=== PATIENT | female | born 2000 | race Caucasian/White ===

== ENCOUNTER 2021-11-07 12:04 | Outpatient (REF) | payer SELFPAY ==
[2021-11-08 14:46] LABS: COVID-19 RT-PCR UVMMC Result Negative (Negative)
== END 2021-11-07 12:05 | disposition home or self-care (01) ==
LOC: NCHCN 12:04
PROVIDERS: PCP Specialist/Technologist Athletic Trainer; Visit Provider Nurse Practitioner Family
DX: Z20.822 Contact with and (suspected) exposure to COVID-19 (principal)
CPT/HCPCS: U0003

== ENCOUNTER 2022-05-16 17:48 | Outpatient (REF) | payer OTHER, SELFPAY | END 2022-05-16 17:49 | disposition home or self-care (01) | LOC: NCHCN 17:48 | PROVIDERS: PCP Specialist/Technologist Athletic Trainer; Visit Provider Nurse Practitioner Family | DX: R35.0 Frequency of micturition (principal) | CPT/HCPCS: 87086 ==

== ENCOUNTER 2022-05-27 15:13 | Outpatient (REF) | payer OTHER, SELFPAY ==
--- OUTSIDE RECORDS SUMMARY | 2022-05-27 15:19 | XMS_ITS | Encounter Summary ---
:2000 Author Organization [facility] [place] [address] Care Team Providers Name Role Phone Michoacano Lenz MD Primary Care Provider Reason for Visit Reason Comments Skin Check Encounter Details Date Type Department Care Team Description 10/03/2014 Office Visit Dermatology at [facility] marlon Kline, MD Roddy Reddy; [address] Walter B [address] [place] [address] DERMATOLOGY [phone] [place], [place] [phone] (Wo rk) Social History Tobacco Use Types Packs/Day Years Used Date Never Smoker Sex Assigned at Date Recorded Not on file documented as of this encounter Patient Instructions Patient InstructionsYaneth Owen LPN - 10/03/2014 3:50 PM EST Images from the original note were not included. [facility] Skin Tag Removal: After Your Visit Your Care Instructions Skin tags are small lumps of fleshy brown, garcia, or pink skin. They are usually raised or hang from the skin on a small stalk. They often grow on the eyelids, neck, armpit, and groin. Skin tags are not moles and usually do not turn into cancer. You are more likely to get skin tags if you are overweight. They also tend to run in families. Skin tags may be removed if they bother you. Your doctor can remove an unwanted skin tag by simply cutting it off. However, new skin tags often form. Follow-up care is a garcia part of your treatment and safety. Be sure to make and go to all appointments, and call your doctor if you are having problems. It's also a good idea to know your test results and keep a list of the medicines you take. How can you care for yourself at home? ?? If clothing irritates a skin tag, cover it with a bandage to prevent rubbing and bleeding. ?? If you have a skin tag removed, clean the area with soap and water two times a day unless your doctor gives you different instructions. Don't use hydrogen peroxide or alcohol, which can slow healing. ?? You may cover the wound with a thin layer of petroleum jelly, such as Vaseline, and a nonstick bandage. ?? Check all the skin on your body once a month for skin growths or other changes, such as color andfeel of the skin. ?? installer technician front of a full-length mirror. Look carefully at the front and back of your body. Then look at your right and left sides with your arms raised. ?? Bend your elbows and look carefully at your forearms, the back of your upper arms, and your palms. ?? Look at your feet, the soles of your feet, and the spaces between your toes. ?? Use a hand mirror to look at the back of your legs, the back of your neck, and your back, rear end (buttocks), and genital area. Part the hair on your head to look at your scalp. ?? If you see a change in a skin growth, contact your doctor. Look for: ?? A mole that bleeds. ?? A fast-growing mole. ?? A scaly or crusted growth on the skin. ?? A sore that will not heal. When should you call for help? Call your doctor now or seek immediate medical care if: ?? You have a bump that itches and bleeds. ?? You have an area of normal skin that suddenly changes in shape, size, or how it looks. ?? You have signs of infection such as: ?? Pain, warmth, or swelling in your skin. ?? Red streaks near a wound in your skin. ?? Pus coming from a wound in your skin. ?? A fever not due to the flu or other illness. Watch closely for changes in your health, and be sure to contact your doctor if: ?? You do not get better as expected. Where can you learn more? Visit our health information library at [email or web address] You can also view health information on [employer], your personal patient account. Log in or sign up today. Enter B457 in the search box to learn more about Skin Tag Removal: After Your Visit. ?? [id number] [employer]. Care instructions adapted under license by [facility]. This care instruction is for use with your licensed healthcare professional. If you have questionsabout a medical condition or this instruction, always ask your healthcare professional. [employer] disclaims any warranty or liability for your use of this information. Content Version: 9.9.639873; Last Revised: November 09, 2012 documented in this encounter Progress Notes Griffin Kline MD - 10/03/2014 4:09 PM EST Problem: Left axillary vault lesion. Maria E is a 14-year-old who has a acrochordon in the left axillary vault. She would like to have this removed. She is referred today by Dr. Lenz. The patient is here today with her mother, Hortencia. Physical examination reveals a pleasant 14-year-old who has numerous benign-appearing melanocytic nevi of the upper chest and back. She has a single acrochordon of the left superior axillary vault. Assessment and Plan: Acrochordon. a. After obtaining informed patient consent, the site was anesthetized and removed with electrodesiccation/snip biopsy. b. Not submitted for pathologic analysis. c. Return to clinic here p.r.n. for new lesions/concerns. COPY: Michoacano Lenz M.D. documented in this encounter Plan of Treatment Not on filedocumented as of this encounter Visit Diagnoses Diagnosis Acrochordon Unspecified hypertrophic and atrophic co ndition of skin Nevus Benign neoplasm of skin, site unspecifie d documented in this encounter Care Teams Insurance Compliance Analyst Relationship Specialty Start Date End Date Michoacano Lenz MD PCP - General 06/13/[address] [place] [id number] documented as of this encounter
--- OUTSIDE RECORDS SUMMARY | 2022-05-27 15:19 | XMS_ITS | Encounter Summary ---
:2000 Demographics Home Phone Preferred Language Unknown Marital Status Unknown Pentecostal Affiliation Unknown Race Unknown Ethnic Group Unknown Author Organization [facility] Address [address] [place] [address] Care Team Providers Name Role Phone Unavailable Primary Care Provider Unavailable Encounter Details Date Type Department Care Team Description 11/07/2021 Lab Requisition [facility] Outr Resulting Lab, Pathology & Laboratory Provider [facility] [address] [place] [address] Social History Tobacco Use Types Packs/Day Years Used Date Never Assessed Sex Assigned at Date Recorded Not on file documented as of this encounter Plan of Treatment Not on filedocumented as of this encounter Procedures Procedure Name Priority Date/Time Associated Diagnosis Comme nts COVID-19 TEST [facility] Today 11/07/2021 10:30 LAB PCR EST COVID-19 TESTING Routine 11/07/2021 10:30 Results for this EST procedure are i n the results section. documented in this encounter Results COVID-19 TEST [facility] LAB PCR (11/07/2021 10:30 EST) Specimen Swab Performing Organization Address City/State/ZIP Code Phon e Number [facility] [address] [place] [address] SERVICES COVID-19 TESTING (11/07/2021 10:30 EST) COVID-19 rt-PCR Negative Negative [facility] Result Comment: [facility] This test has not been FDA c leared or approved. This test has been authorized by FDA under an EUA for use by authorized laboratories. This test has been authorized only for detection of nucleic acid fro SERVICES m 2019-nCoV, not for any oth er viruses or pathogens. This test is only authorized for the duration of the declaration that circumstances exist justifying the authorization of emergency use of in vitro d iagnostic tests for detectio n and/or diagnosis of 2019-nCoV under section 564(b)(1) of Act, 21 U.S.C ?? 360bbb-3(b) (1), unless the authorization is terminated or revoked sooner. Negative results do not prec lude 2019-nCoV infection and should not be used as the sole basis for treatment or other patient management decisions. Negative results must be combined with clinical observa tions, patient history, and epidemiological informatio n. Testing was performed using the zoran SARS-CoV-2 assay ([employer] on the Zoran 6800 System Performing Lab Zoran [address] [facility] Lab [facility] SERVICES Specimen Swab Performing Organization Address City/State/ZIP Code Phon e Number [facility] [address] [place] [address] SERVICES documented in this encounter Visit Diagnoses Not on filedocumented in this encounter
[2022-05-29 08:39] LABS: HCG Quant, Pregnancy < 1 mIU/mL (1-3)
== END 2022-05-27 15:14 | disposition home or self-care (01) ==
LOC: NCHCN 15:13
PROVIDERS: PCP Specialist/Technologist Athletic Trainer; Visit Provider Nurse Practitioner Family
DX: N91.2 Amenorrhea, unspecified (principal)
CPT/HCPCS: 84702; 84703

== ENCOUNTER 2023-01-12 17:00 | Emergency (ER) | payer SELFPAY ==
[2023-01-12 17:04] VITALS: BP 116/67; PULSE 97; RESP 16; TEMP 36.7; O2SAT 98
[2023-01-12 17:27] LABS: Bilirubin Negative (Negative); Blood Large (Negative); Clarity Cloudy (Clear); Glucose Negative (Negative); Ketones Trace mg/dL (Negative); Leukocyte Esterase Small (Negative); Nitrite Negative (Negative); Specific Gravity >= 1.030 (1.005-1.025)
[2023-01-12] MEDS: Lactated Ringers 1,000 ML 1000 ML IV (17:35)
[2023-01-12 17:45] LABS: Bacteria Few HPF (Negative); Crystals Negative HPF (Negative); Epithelial Cells Few HPF (Negative); Mucus Negative (Negative); RBC 20-50 HPF (0-2); WBC 20-50 HPF (0-5)
--- NOTE | 2023-01-12 17:45 | DI.CT_ITS ---
Exam(s) CT RENAL COLIC WO EXAM: CT RENAL COLIC WO CLINICAL HISTORY: pain rt lower abd, increase urinary freq, dysuria. TECHNIQUE: Imaging Protocol: Axial computed tomography images with coronal and sagittal reformatted images were created and reviewed. COMPARISON: No exams were available for comparison FINDINGS: ABDOMEN: Lung Bases: Normal where visualized. Liver: There is decreased attenuation of the liver consistent with fatty infiltration. The liver is enlarged. No measurable mass. Gallbladder and biliary tract: No radiodense calculus or biliary ductal dilation. Pancreas: Normal density, no abnormal calcifications or inflammatory process. Spleen: Normal. Kidneys: Normal size, contour and axis.There is a 2 mm calcification within or adjacent to the left m id ureter. There is also 2 mm calcification on the right side which appears to be posterior and outs suzette of the ureter. Is at the L5-S1 disc level. No other ureteral stones are seen. There is mild pr ominence of both ureters, but there is mild stranding around the right ureter. No masses seen. Adrenal glands: No mass is seen. Lymph nodes: Within normal limits. Abdominal Aorta: Abdominal portion non-dilated. PELVIS: Bladder:There is thickening of the wall of the urinary bladder with surrounding inflammatory strandin g. No bladder stones are present. Bowel: No obstruction or bowel wall thickening. Appendix is unremarkable. Peritoneal cavity: There is a small amount of free fluid in the pelvis. No free air. Reproductive organs: Unremarkable as visualized. Bones: Within normal limits. Soft Tissues: There is a small fat containing umbilical hernia. IMPRESSION: 1. Tiny calcifications seen in the pelvis. The 1 on the right appears to be outside posterior to the ureter. The 1 on the left may be within or adjacent to the ureter. There is prominence of the uret ers particularly on the right. There is mild stranding around the right ureter. This may represent a recently passed stone. No bladder stone is identified. 2. No nephrolithiasis. 3. Urinary bladder wall thickening and surrounding inflammation. This may represent cystitis. Stran ding around the right ureter may represent an infection or inflammatory process. RADIATION DOSE DELIVERED: 1,165.75mGy.cm Total DLP DATA REPOSITORY: All CT scans at this facility are submitted to the National Radiology Data Registry (NRDR) Dose Index Registry (DIR) with the [employer] [place] [employer] (ACR). RADIATION OPTIMIZATION: All CT scans at this facility use at least one of these dose optimization te chniques: automated exposure control; mA and/or kV adjustment per patient size (includes targeted exa ms where dose is matched to clinical indication); or iterative reconstruction.
[2023-01-12 17:46] LABS: C & S Indicated? Yes; Casts Negative LPF (Negative)
[2023-01-12 18:21] LABS: Abs Immature Grans 0.02 10^3/uL (0.0-0.06); Absolute Basophil Count 0.05 10^3/uL (0.0-0.2); Absolute Eosinophil Count 0.09 10^3/uL (0.0-0.7); Absolute Lymphocyte Count 2.33 10^3/uL (1.2-3.4); Absolute Monocyte Count 0.66 10^3/uL (0.1-0.8); Absolute Neutrophil Count 7.04 10^3/uL (1.2-6.7); Basophils % 0.5; Eosinophils % 0.9; HCT 42.5 % (36.0-46.0); HGB 14.6 g/dL (11.2-15.7); Immature Grans % 0.2; Lymphocytes % 22.9; MCH 30.1 pg (27.0-33.0); MCHC 34.4 % (32.0-36.0); MCV 88 fL (80-95); MPV 9.4 fL (8.0-11.0); Monocytes % 6.5; Platelet Count 287 10^3/uL (130-400); RBC 4.85 10^6/uL (3.93-5.22); RDW 12.5 % (11.7-14.6); RDW-SD 39.1 fL; WBC 10.19 10^3/uL (4.4-10.8)
[2023-01-12 18:39] LABS: ALT 53 U/L (14-59); AST 17 U/L (15-37); Albumin 4.3 g/dL (3.4-5.0); Alkaline Phosphatase 112 U/L (46-116); Anion Gap 10.6 mmol/L (3-11); BUN 9 mg/dL (7-18); Bilirubin, Total 0.8 mg/dL (0.2-1.0); CO2 27.4 mmol/L (21.0-32.0); CREATININE 0.8 mg/dL (0.55-1.02); Calcium 9.7 mg/dL (8.5-10.1); Chloride 103 mmol/L (98-107); Estimated GFR 105.45 (mL/min/1.73m2); Glucose 87 mg/dL (74-106); Lipase 31 U/L (16-77); Potassium 3.2 mmol/L (3.5-5.1); Sodium 141 mmol/L (136-145); Total Protein 8.9 g/dL (6.4-8.2)
--- NOTE | 2023-01-12 19:07 | DI.VRAD_ITS ---
PROCEDURE INFORMATION: Exam: CT Abdomen And Pelvis Without Contrast Exam date and time: 01/12/2023 6:26 PM Age: 22 years old Clinical indication: Abdominal pain; Localized; Right lower quadrant (rlq); Patient HX: Pain RT lower abd, increase urinary freq, dysuria TECHNIQUE: Imaging protocol: Computed tomography of the abdomen and pelvis without contrast. Radiation optimization: All CT scans at this facility use at least one of these dose optimization techniques: automated exposure control; mA and/or kV adjustment per patient size (includes targeted exams where dose is matched to clinical indication); or iterative reconstruction. COMPARISON: No relevant prior studies available. FINDINGS: Lungs: Visualized lung bases are clear. Liver: Normal. No mass or intrahepatic biliary ductal dilatation. Gallbladder and bile ducts: Normal. No calcified stones. No ductal dilation. Pancreas: Normal. No mass or ductal dilation. Spleen: Normal. No splenomegaly. Adrenal glands: Normal. No mass. Kidneys and ureters: No renal calculus on either side. There is mild right-sided hydronephrosis and hydroureter but no ureteral stone is seen. Stomach and bowel: Unremarkable. No significant dilatation or obstruction. No mucosal thickening or visible mass. Appendix: No evidence of appendicitis. Intraperitoneal space: Unremarkable. No free air. No significant fluid collection. Vasculature: Unremarkable. No abdominal aortic aneurysm or significant atherosclerosis. Lymph nodes: No enlarged retroperitoneal or mesenteric lymph nodes. Urinary bladder: The bladder is incompletely distended. There is slight wall thickening to 7-8 mm with some surrounding stranding. Reproductive: Unremarkable as visualized. Bones/joints: Unremarkable. No acute fracture. No lytic lesion. Soft tissues: Unremarkable. IMPRESSION: No renal calculus but there is mild right-sided hydronephrosis and hydroureter. This could reflect a recently passed stone. Additionally, there is bladder wall thickening with surrounding stranding concerning for potential cystitis. Dictated and Authenticated by: Antoni Nguyen MD. Ordering:IBAN Argueta MD
[2023-01-12] MEDS: Potassium Chloride 20 MEQ TABCR PO (19:18)
--- NOTE | 2023-01-12 19:55 | W.ED.GENAD ---
Discharge Plan Disposition Patient Disposition: Home Condition: Stable Discharge Details Clinical Impression: Pyelonephritis Primary Care Provider: Jayson Wu ED Provider: Kendall Alexis Home Meds and New Rx's Prescriptions: New cephalexin 500 mg tablet 500 mg PO QID Qty: 48 0RF Continued Vitamin C 1 tab.chew PO PRN Patient Comments: no longer taking 01/12/23 CT Discharge Instructions Instructions: Cephalexin (By mouth), Urinary Tract Infection in Women (ED) Additional Instructions: Please continue full course of antibiotic as prescribed. Please contact your primary care physician to arrange follow-up. Return to the ER immediately for any worsening or new concerning symptoms. Referrals: Jayson Wu [Primary Care Provider] - Discharge Data Discharge Date/Time-TO BE ENTERED AT DEPARTURE: 01/12/23 20:19 Medical Decision Making 22-year-old female here with right lower abdominal and flank pain as well as urinary symptoms. Concern for pyelonephritis versus ureteral stone. Urinalysis reviewed and does have significant white blood cells and red blood cells. CT of the abdomen pelvis renal protocol was obtained to assess for acute surgical pathology. Interpreted by radiology: IMPRESSION: No renal calculus but there is mild right-sided hydronephrosis and hydroureter. ?This could reflect a recently passed stone.? Additionally, there is bladder wall thickening with surrounding stranding concerning for potential cystitis. Patient was given IV fluid bolus. She was given potassium supplementation for mild hypokalemia. Patient reassessed and feeling better. Patient was treated with ceftriaxone IV and provided starter dose of Keflex to be used at home. Disposition decision was made weighing the risks and benefits of hospitalization versus outpatient treatment, the risk for further decompensation, and the patient's wishes. The patient was stable and requested discharge. Prior to discharge, my usual and customary return precautions were reviewed with the patient - this included follow-up instructions and reason to return to the emergency department if condition worsens, does not improve as expected, or other new concerns arise. Lab Data Lab results reviewed: Yes I reviewed the patient's lab results. Labs: 01/12/23 17:10 Urine - Reflex from Ua Urine Culture - Final Staphylococcus Saprophyticus Gram Positive Bekah,Mixed Laboratory Tests Range/Units 01/12/23 01/12/23 01/12/23 17:10 17:32 17:32 WBC (4.4-10.8) 10^3/uL 10.19 RBC (3.93-5.22) 10^6/uL 4.85 Hgb (11.2-15.7) g/dL 14.6 Hct (36.0-46.0) % 42.5 MCV (80-95) fL 88 MCH (27.0-33.0) pg 30.1 MCHC (32.0-36.0) % 34.4 RDW (11.7-14.6) % 12.5 Plt Count (130-400) 10^3/uL 287 MPV (8.0-11.0) fL 9.4 Immature Gran % 0.2 Neutrophils % 69.0 Lymphocytes % 22.9 Monocytes % 6.5 Eosinophils % 0.9 Basophils % 0.5 Nucleated RBC % (0.0-0.3) % 0.0 Absolute Neutrophils (1.2-6.7) 10^3/uL 7.04 H Absolute Lymphocytes (1.2-3.4) 10^3/uL 2.33 Absolute Monocytes (0.1-0.8) 10^3/uL 0.66 Absolute Eosinophils (0.0-0.7) 10^3/uL 0.09 Absolute Basophils (0.0-0.2) 10^3/uL 0.05 Sodium (136-145) mmol/L 141 Potassium (3.5-5.1) mmol/L 3.2 L Chloride (98-107) mmol/L 103 Carbon Dioxide (21.0-32.0) mmol/L 27.4 Anion Gap (3-11) mmol/L 10.6 BUN (7-18) mg/dL 9 Creatinine (0.55-1.02) mg/dL 0.8 Est GFR (CKD-EPI 2020) (mL/min/1.73m2) 105.45 Glucose (74-106) mg/dL 87 Calcium (8.5-10.1) mg/dL 9.7 Total Bilirubin (0.2-1.0) mg/dL 0.8 AST (15-37) U/L 17 ALT (14-59) U/L 53 Alkaline Phosphatase (46-116) U/L 112 Total Protein (6.4-8.2) g/dL 8.9 H Albumin (3.4-5.0) g/dL 4.3 Lipase (16-77) U/L 31 Urine Color (Yellow) Yellow Urine Clarity (Clear) Cloudy Urine pH (5-8) 7.0 Ur Specific [place] (1.005-1.025) >= 1.030 H Urine Protein (Negative) mg/dL >=300 H Urine Ketones (Negative) mg/dL Trace H Urine Blood (Negative) Large H Urine Nitrite (Negative) Negative Urine Bilirubin (Negative) Negative Urine Urobilinogen (Up to 0.2) mg/dL 1.0 H Ur Leukocyte Esterase (Negative) Small H Urine RBC (0-2) HPF 20-50 H Urine WBC (0-5) HPF 20-50 H Ur Epithelial Cells (Negative) HPF Few Urine Crystals (Negative) HPF Negative Urine Bacteria (Negative) HPF Few Urine Casts (Negative) LPF Negative Urine Mucus (Negative) Negative Ur Culture Indicated? Yes Urine Glucose (Negative) mg/dL Negative HPI General Mode of arrival: ambulatory. Date/Time Provider Initiated Documentation: 01/12/23 17:27. Limitations to Documentation: no limitations. Information obtained by: patient. HPI Narrative: 22-year-old female presents with chief complaint of abdominal pain. Pain started yesterday and has persisted. Pain localized to right lower abdomen. Patient notes that has been intermittent since onset and worse over the past hour. She denies associated nausea or vomiting. She has had some discomfort with urination as well as sense of urgency and increased frequency. No flank pain. No abnormal vaginal discharge. Related Data Home Medications Medication Instructions Recorded Confirmed Vitamin C 1 tab.chew PO PRN 01/01/15 cephalexin 500 mg tablet 500 mg PO QID #48 tabs 01/12/23 Previous Rx's Medication Instructions Recorded cephalexin 500 mg tablet 500 mg PO QID #48 tabs 01/12/23 Allergies Allergy/AdvReac Type Severity Reaction Status Date / Time No Known Allergies Allergy Unverified 01/12/23 17:08 General Stated Complaint: Abd Prob JUNE: 3 Review of Systems All systems reviewed & are unremarkable except as noted in HPI and below Genitourinary Genitourinary: Reports as per HPI PFSH All Active Problems Pyelonephritis (Acute) Social History Smoking/Tobacco Use Status: Current-Occasional Tobacco Type: e-cigarettes Smoking risk assessment performed?: Yes Alcohol Intake: never Drug use: Occasionally Substance use type: marijuana Do you feel safe at home: Yes Do you feel safe in your relationship?: Yes Exam Const General: cooperative and no acute distress HENMT Mouth: moist mucous membranes Eyes Conjunctivae: normal conjunctivae Sclera: normal sclerae Neck Neck: trachea midline and supple Resp Auscultation: clear to auscultation bilaterally, no rales, no rhonchi and no wheezes Cardio Rate: regular rate and not tachycardic Rhythm: regular rhythm GI Palpation: soft, not firm, no guarding, no masses, not rigid and tender in the RLQ and other (rt flank) Auscultation: normal bowel sounds Back/Spine/Pelvis Back: CVA tenderness (rt) Skin General skin exam: no rashes or lesions noted Neuro General: patient alert, patient awake and tone normal Extrem General: no edema Psych Appearance: grossly normal Mental Status: mental status grossly normal Course Vital Signs Vital signs: Vital Signs Temperature 36.7 C 01/12/23 17:04 Pulse 97 H 01/12/23 17:04 Respiratory Rate 16 01/12/23 17:04 Blood Pressure 116/67 01/12/23 17:04 Pulse Oximetry 98 01/12/23 17:04 Temperature 36.7 C 01/12/23 17:04 Temperature Source Temporal Artery Scan 01/12/23 17:04 Pulse 97 H 01/12/23 17:04 Respiratory Rate 16 01/12/23 17:04 Respiratory Effort Normal 01/12/23 17:07 Blood Pressure 116/67 01/12/23 17:04 Blood Pressure Position Sitting 01/12/23 17:04 Pulse Oximetry 98 01/12/23 17:04 Oxygen Delivery Method Room Air 01/12/23 17:04 Oxygen Flow Rate 0 01/12/23 17:04 Pain Level 9 01/12/23 17:04 Lab/Test Results Lab/Test Results: 01/12/23 17:10 Urine - Reflex from Ua Urine Culture - Pending Laboratory Tests Range/Units 01/12/23 01/12/23 01/12/23 17:10 17:32 17:32 WBC (4.4-10.8) 10^3/uL 10.19 RBC (3.93-5.22) 10^6/uL 4.85 Hgb (11.2-15.7) g/dL 14.6 Hct (36.0-46.0) % 42.5 MCV (80-95) fL 88 MCH (27.0-33.0) pg 30.1 MCHC (32.0-36.0) % 34.4 RDW (11.7-14.6) % 12.5 Plt Count (130-400) 10^3/uL 287 MPV (8.0-11.0) fL 9.4 Immature Gran % 0.2 Neutrophils % 69.0 Lymphocytes % 22.9 Monocytes % 6.5 Eosinophils % 0.9 Basophils % 0.5 Nucleated RBC % (0.0-0.3) % 0.0 Absolute Neutrophils (1.2-6.7) 10^3/uL 7.04 H Absolute Lymphocytes (1.2-3.4) 10^3/uL 2.33 Absolute Monocytes (0.1-0.8) 10^3/uL 0.66 Absolute Eosinophils (0.0-0.7) 10^3/uL 0.09 Absolute Basophils (0.0-0.2) 10^3/uL 0.05 Sodium (136-145) mmol/L 141 Potassium (3.5-5.1) mmol/L 3.2 L Chloride (98-107) mmol/L 103 Carbon Dioxide (21.0-32.0) mmol/L 27.4 Anion Gap (3-11) mmol/L 10.6 BUN (7-18) mg/dL 9 Creatinine (0.55-1.02) mg/dL 0.8 Est GFR (CKD-EPI 2020) (mL/min/1.73m2) 105.45 Glucose (74-106) mg/dL 87 Calcium (8.5-10.1) mg/dL 9.7 Total Bilirubin (0.2-1.0) mg/dL 0.8 AST (15-37) U/L 17 ALT (14-59) U/L 53 Alkaline Phosphatase (46-116) U/L 112 Total Protein (6.4-8.2) g/dL 8.9 H Albumin (3.4-5.0) g/dL 4.3 Lipase (16-77) U/L 31 Urine Color (Yellow) Yellow Urine Clarity (Clear) Cloudy Urine pH (5-8) 7.0 Ur Specific [place] (1.005-1.025) >= 1.030 H Urine Protein (Negative) mg/dL >=300 H Urine Ketones (Negative) mg/dL Trace H Urine Blood (Negative) Large H Urine Nitrite (Negative) Negative Urine Bilirubin (Negative) Negative Urine Urobilinogen (Up to 0.2) mg/dL 1.0 H Ur Leukocyte Esterase (Negative) Small H Urine RBC (0-2) HPF 20-50 H Urine WBC (0-5) HPF 20-50 H Ur Epithelial Cells (Negative) HPF Few Urine Crystals (Negative) HPF Negative Urine Bacteria (Negative) HPF Few Urine Casts (Negative) LPF Negative Urine Mucus (Negative) Negative Ur Culture Indicated? Yes Urine Glucose (Negative) mg/dL Negative POC- Test(urine) Negative
[2023-01-12] MEDS: Cephalexin 500 MG CAP, 2 CAPS/BTL PO (20:14)
[2023-01-12 20:17] VITALS: BP 103/73; PULSE 99; RESP 16; TEMP 36.9; O2SAT 96
--- NOTE | 2023-01-15 08:20 | NUR.NOTE ---
Nursing Note: Accessed chart to look up whether or not on antibiotic.
== END 2023-01-12 20:19 | disposition home or self-care (01) ==
PROVIDERS: Emergency Provider Student in an Organized Health Care Education/Training Program; PCP Specialist/Technologist Athletic Trainer
DX: N12 Tubulo-interstitial nephritis, not specified as acute or chronic (principal); N13.30 Unspecified hydronephrosis; E87.6 Hypokalemia
CPT/HCPCS: 36415; 80053; 81025; 83690; 87077; 96361; 96365; 99284; 74176; 81003; 81015; 85025; 87086

== ENCOUNTER 2023-06-05 12:09 | Outpatient (REF) | payer SELFPAY | END 2023-06-05 12:10 | disposition home or self-care (01) | LOC: NCHCN 12:09 | PROVIDERS: PCP Specialist/Technologist Athletic Trainer; Visit Provider Nurse Practitioner Family | DX: R30.0 Dysuria (principal) | CPT/HCPCS: 87086 ==

== ENCOUNTER 2023-12-10 22:55 | Emergency (ER) | payer SELFPAY ==
[2023-12-10 22:57] VITALS: BP 130/74; PULSE 95; RESP 16; TEMP 36.3; O2SAT 100
[2023-12-10 23:33] LABS: HCT 39.1 % (36.0-46.0); HGB 13.6 g/dL (11.2-15.7); MCH 30.9 pg (27.0-33.0); MCHC 34.8 % (32.0-36.0); MCV 89 fL (80-95); MPV 9.3 fL (8.0-11.0); Platelet Count 253 10^3/uL (130-400); RDW 12.7 % (11.7-14.6); RDW-SD 41.2 fL; WBC 8.26 10^3/uL (4.4-10.8)
--- NOTE | 2023-12-10 23:33 | ED.GENADUL_ITS ---
Discharge Plan Disposition Patient Disposition: Home Condition: Good Discharge Details Chief Complaint: GenMedical Clinical Impression: Dysmenorrhea, unspecified Primary Care Provider: Jayson Wu ED Provider: Kristian Garcia Home Meds and New Rx's Prescriptions: No Action Vitamin C 1 tab.chew PO PRN Patient Comments: no longer taking 01/12/23 CT cephalexin 500 mg tablet 500 mg PO QID Qty: 48 0RF Discharge Instructions Additional Instructions: Follow-up with your regular primary care provider to consider oral contraception to regulate your menstrual cycle if you continue to have menstrual irregularities. You can always return to the ER for any new concerns or sudden changes in your health which you feel require emergency medical attention. Discharge Data Discharge Physician: Kristian Garcia [facility] General Date/Time Provider Initiated Documentation: 12/10/23 22:56 . HPI Narrative: The patient is a 23-year-old female, with no contributory past medical history, who presents to the emergency department this evening complaining of more menstrual bleeding than usual after having sexual intercourse tonight with her boyfriend. The patient reports that she had began having her normal menstrual flow approximately 3 days ago but then began having bleeding tonight while her boyfriend was manipulating her vagina with his fingers. They then had penetrative vaginal intercourse with his penis and she had multiple clots that came out. She denies having any pain in the vagina or in the lower abdomen. She was simply concerned because she has more bleeding than she would ordinarily have. Related Data Home Medications Medication Instructions Recorded Confirmed Vitamin C 1 tab.chew PO PRN 01/01/15 cephalexin 500 mg tablet 500 mg PO QID #48 tabs 01/12/23 Previous Rx's Medication Instructions Recorded cephalexin 500 mg tablet 500 mg PO QID #48 tabs 01/12/23 Allergies Allergy/AdvReac Type Severity Reaction Status Date / Time No Known Allergies Allergy Unverified 01/12/23 17:08 General Stated Complaint: GenMedical JUNE: 4 Exam Const Other: The patient is in no distress and is sitting up in bed. She reports no pain. Other: A speculum exam of the vaginal vault reveals a closed cervical os with blood and some pooled blood in the posterior vaginal vault with some clotting. There did not appear to be any vaginal vault injury such as lacerations or abrasions that are actively bleeding. Course Vital Signs Vital signs: Vital Signs Temperature 36.3 C L 12/10/23 22:57 Pulse 95 H 12/10/23 22:57 Respiratory Rate 16 12/10/23 22:57 Blood Pressure 130/74 12/10/23 22:57 Pulse Oximetry 100 12/10/23 22:57 Temperature 36.3 C L 12/10/23 22:57 Pulse 95 H 12/10/23 22:57 Respiratory Rate 16 12/10/23 22:57 Respiratory Effort Normal 12/10/23 23:08 Blood Pressure 130/74 12/10/23 22:57 Pulse Oximetry 100 12/10/23 22:57 Oxygen Delivery Method Room Air 12/10/23 22:57 Oxygen Flow Rate 0 12/10/23 22:57 Pain Level 0 12/10/23 22:57 Medical Decision Making The patient was seen and examined. She is in no distress and has normal vital signs. She will have blood counts to ensure that she does not have any significant changes compared to her baseline will have a qualitative beta-hCG obtained to exclude as an etiology for her bleeding. Assuming that these are negative, I will simply have the patient wait and see how her menstrual flow progresses. She may simply return to her typical menstrual flow and not require any additional management. She can follow-up with her primary care doctor and consider oral contraceptives if she has any dysfunctional uterine bleeding beyond the normal timeframe for her menstrual cycle. Blood counts were normal and the hCG was negative. The patient continues to do well and is encouraged to follow-up with primary care for reevaluation if symptoms are ongoing. Quality:SDOH Health Related Social Needs: No Data to Display PFSH All Active Problems (Updated 12/11/23 @ 00:03 by Kristian Garcia MD) Dysmenorrhea, unspecified (Acute) Social History Smoking/Tobacco Use Status: Current-Occasional Tobacco Type: e-cigarettes Smoking risk assessment performed?: Yes Alcohol Intake: never Drug use: Occasionally Substance use type: marijuana Do you feel safe at home: Yes Do you feel safe in your relationship?: Yes
[2023-12-10 23:51] LABS: HCG Qual (Serum) Negative
== END 2023-12-11 00:10 | disposition home or self-care (01) ==
PROVIDERS: Emergency Provider Emergency Medicine Emergency Medical Services; PCP Specialist/Technologist Athletic Trainer
DX: N94.6 Dysmenorrhea, unspecified (principal); F17.290 Nicotine dependence, other tobacco product, uncomplicated
CPT/HCPCS: 36415; 85027; 99283; 84703

== ENCOUNTER 2024-10-04 03:27 | Outpatient (CLI) | payer MEDICAID, SELFPAY ==
[2024-10-04 12:10] LABS: Abs Immature Grans 0.02 10^3/uL (0.0-0.06); Absolute Basophil Count 0.04 10^3/uL (0.0-0.2); Absolute Eosinophil Count 0.07 10^3/uL (0.0-0.7); Absolute Lymphocyte Count 1.58 10^3/uL (1.2-3.4); Absolute Monocyte Count 0.32 10^3/uL (0.1-0.8); Absolute Neutrophil Count 5.35 10^3/uL (1.2-6.7); Basophils % 0.5 %; Eosinophils % 0.9 %; HCT 36.8 % (36.0-46.0); HGB 12.9 g/dL (11.2-15.7); Immature Grans % 0.3 %; Lymphocytes % 21.4 %; MCH 31.1 pg (27.0-33.0); MCHC 35.1 % (32.0-36.0); MCV 89 fL (80-95); MPV 9.8 fL (8.0-11.0); Monocytes % 4.3 %; Neutrophils % 72.6 %; Platelet Count 238 10^3/uL (130-400); RBC 4.15 10^6/uL (3.93-5.22); RDW 12.6 % (11.7-14.6); RDW-SD 40.5 fL; WBC 7.38 10^3/uL (4.4-10.8)
[2024-10-04 23:04] LABS: Hepatitis B Surface Ag Negative (Negative)
[2024-10-04 23:40] LABS: Hepatitis C Ab w Rflx HCV PCR Negative (Negative)
[2024-10-04 23:44] LABS: HIV-1/2 Ag & Ab Screen Negative (Negative)
[2024-10-05 12:16] LABS: Rubella IgG Ab (UVM) Positive (See Note); Varicella IgG Antibody Positive (See Note)
[2024-10-07 14:09] LABS: Syphilis IgG w/Reflex Nonreactive (Nonreactive)
[2024-10-17 12:47] LABS: Result Summary NEGATIVE; Specimen WB Whole Blood
== END 2024-10-04 03:28 | disposition home or self-care (01) ==
LOC: LBO 03:27
PROVIDERS: PCP Nurse Practitioner Family; Visit Provider Advanced Practice Midwife
DX: Z34.91 Encounter for supervision of normal pregnancy, unspecified, first trimester (principal)
CPT/HCPCS: 36415; 81220; 81222; 86787; 86803; 86850; 86900; 86901; 87340; 87389; 85025; 86762; 86780

== ENCOUNTER 2024-10-04 11:34 | Outpatient (REF) | payer MEDICAID, SELFPAY ==
--- NOTE | 2024-10-04 11:00 | PAPFT_PTH ---
PATIENT: Maria E Rose LOC: [facility] U#:[id number] AGE/SX: 24/F ROOM: RE10/04/[address]: Bharati Gtz CNM : 2000 BED: DIS: 10/04/2024 SPEC #: [id number] RECD: 10/04/24 13:01 STATUS: ZEESHAN REMarielena #: [id number] MAURIZIO: 10/04/24 11:[address]: Bharati Gtz DEPT: [facility] Cytology RECD BY: Veda Clinton ENTERED: 10/04/24 13:01 SP TYPE: PAPFT OTHR DR: Xi Pride Tissues: 1 - CX/ENDOCX FOR PAP SMEARS Procedures: PAP THIN PREP/UVM Screening Comments: [id number] (CHLAMYDIA/GC)
[2024-10-05 11:16] LABS: Chlamydia Result Negative (Negative); GC Result Negative (Negative)
== END 2024-10-04 11:35 | disposition home or self-care (01) ==
LOC: LBN 11:34
PROVIDERS: PCP Nurse Practitioner Family; Visit Provider Advanced Practice Midwife
DX: Z34.91 Encounter for supervision of normal pregnancy, unspecified, first trimester (principal)
CPT/HCPCS: 80307; 80348; 87491; 87591; 88142; 87086

== ENCOUNTER 2024-10-05 02:05 | Outpatient (CLI) | payer MEDICAID, SELFPAY ==
--- NOTE | 2024-10-05 09:00 | DI.US_ITS ---
Exam(s) US OB 1ST TRIMESTER EXAM: US OB 1ST TRIMESTER CLINICAL HISTORY: dating and viability,UNCERTAIN DATES,Z34.90. COMPARISON: US POCUS EXAM from 09/20/2024 TECHNIQUE: Transabdominal Transvaginal first trimester obstetrical ultrasound performed. FINDINGS: There is a single living intrauterine gestation. Estimated sonographic age based on crown-rump lengt h is 12 weeks 6 days. heart rate of 150 beats per minute was obtained. movement was not ed during the examination. Amniotic fluid appears within normal limits. Pelvic Measurments Uterus: 10.1 long by 7.8 AP by 8.1 transverse cm Rt Ovary: 3.4 x 2.1 x 3.4 cm. There is a 2.0 x 1.6 x 2.0 cm simple cyst on the right ovary. Lt Ovary: The left ovary cannot be visualized on this examination. IMPRESSION: There is a single living intrauterine gestation of estimated sonographic age 12 weeks 6 days. DATA REPOSITORY:
== END 2024-10-05 02:25 ==
PROVIDERS: PCP Nurse Practitioner Family; Visit Provider Advanced Practice Midwife
DX: Z34.92 Encounter for supervision of normal pregnancy, unspecified, second trimester (principal); Z3A.12 12 weeks gestation of pregnancy
CPT/HCPCS: 76801

== ENCOUNTER 2024-11-01 10:44 | Outpatient (CLI) | payer MEDICAID, SELFPAY ==
[2024-11-01 11:15] LABS: *AMPHETAMINES SCREEN URINE Negative (Negative); *BARBITURATES SCREEN URINE Negative (Negative); *BENZODIAZEPINES SCREEN URINE Negative (Negative); Cannabinoids THC Negative (Negative); Cocaine Screen,Urine Negative (Negative); METHADONE URINE SCREEN Negative (Negative); OPIATES URINE SCREEN Negative (Negative); Tricyclic Antidepressants Negative (Negative)
[2024-11-02 11:25] LABS: Fentanyl Scr w/Rfx Confirm Negative ng/mL (<1)
[2024-11-03 12:03] LABS: AFP 39.6 ng/mL; Calculated age at EDD 26 years; Cigarette smoking status non-Smoker; GA used in risk estimate Scan estimate; IVF Pregnancy No; Initial or repeat testing Initial testing; Insulin dependent diabetes No; Maternal Weight 154 lbs; Number of Fetuses 1; Physician Phone Number 802-748-7300; Prev Pregnancy w/NTD No; RECOMMENDED FOLLOW UP None.; Results Summary Normal risk
[2024-11-09 08:32] LABS: Buprenorphine Negative ng/mL (Cutoff: 5.0); Norbuprenorphine Negative ng/mL (Cutoff: 2.5)
== END 2024-11-01 10:45 | disposition home or self-care (01) ==
LOC: LBO 10:45
PROVIDERS: PCP Nurse Practitioner Family; Visit Provider Advanced Practice Midwife
DX: Z34.91 Encounter for supervision of normal pregnancy, unspecified, first trimester (principal)
CPT/HCPCS: 36415; 80307; 80348; 82105

== ENCOUNTER 2024-12-09 00:13 | Outpatient (CLI) | payer MEDICAID, SELFPAY ==
--- NOTE | 2024-12-09 07:00 | DI.US_ITS ---
Exam(s) US OB 2-3 TRIMESTER EXAM: US OB 2-3 TRIMESTER CLINICAL HISTORY: 20 wk us,z34.90,. TECHNIQUE: Transabdominal obstetrical ultrasound performed. COMPARISON: US US OB 1ST TRIMESTER from 10/05/2024 FINDINGS: Number of fetuses: 1 position: CEPHALIC heart rate: 153bpm Placental location: There is a grade 1 anterior placenta. The placental tip is over 7.5 cm from the internal os. No evidence of previa. Amniotic fluid index: Amount of fluid is within normal limits. ANATOMICAL SURVEY: Within normal limits. BIOMETRIC DATA: BPD: 5.34cm, 22weeks 2days HC: 20.27cm, 22weeks 3days AC: 18.07cm, 22weeks 6days FL: 3.98cm, 22weeks 6days Cisterna magna: 5.7mm Cerebellum: 2.17cm Lateral ventricle: 0.5 cm EFW: 536.13g, 1lb 2.92oz, 70.4% Composite Age: 22weeks 4days MADDY: 04/10/2025 Heart Rate: 153bpm ANATOMICAL SURVEY: Four-chambered heart: Unremarkable. RVOT: Unremarkable. LVOT: Unremarkable. Left-sided stomach: Unremarkable. urinary bladder: Unremarkable. Bilateral kidneys: Unremarkable. Three-vessel cord: Unremarkable. Cord insertion: Unremarkable. Posterior fossa: Unremarkable. ventricles: Unremarkable. nose/lips: Unremarkable. Palate: Unremarkable. spine: Unremarkable. Two arms and two legs: Unremarkable. IMPRESSION: 1. Single live intrauterine gestation as above. 2. Normal anatomic survey. DATA REPOSITORY:
== END 2024-12-09 00:33 ==
LOC: DI 00:13
PROVIDERS: PCP Nurse Practitioner Family; Visit Provider Advanced Practice Midwife
DX: Z34.92 Encounter for supervision of normal pregnancy, unspecified, second trimester (principal); Z3A.22 22 weeks gestation of pregnancy
CPT/HCPCS: 76805

== ENCOUNTER 2025-01-25 02:19 | Outpatient (CLI) | payer MEDICAID, SELFPAY ==
[2025-01-25 10:51] LABS: HCT 33.9 % (36.0-46.0); HGB 11.4 g/dL (11.2-15.7); MCH 31.1 pg (27.0-33.0); MCHC 33.6 % (32.0-36.0); MCV 92 fL (80-95); MPV 9.1 fL (8.0-11.0); Platelet Count 216 10^3/uL (130-400); RBC 3.67 10^6/uL (3.93-5.22); RDW 13.1 % (11.7-14.6); RDW-SD 44.1 fL; WBC 7.96 10^3/uL (4.4-10.8)
[2025-01-25 11:02] LABS: Glucose,1 Hr (Glucola) 155 mg/dL (80-140)
== END 2025-01-25 02:20 | disposition home or self-care (01) ==
LOC: LBO 02:19
PROVIDERS: PCP Nurse Practitioner Family; Visit Provider Advanced Practice Midwife
DX: Z34.90 Encounter for supervision of normal pregnancy, unspecified, unspecified trimester (principal)
CPT/HCPCS: 36415; 82950; 85027

== ENCOUNTER 2025-01-25 10:32 | Outpatient (REF) | payer MEDICAID, SELFPAY ==
[2025-01-25 12:00] LABS: Lab Add On Test DONE
[2025-01-25 13:22] LABS: *AMPHETAMINES SCREEN URINE Negative (Negative); *BARBITURATES SCREEN URINE Negative (Negative); *BENZODIAZEPINES SCREEN URINE Negative (Negative); Cannabinoids THC Negative (Negative); Cocaine Screen,Urine Negative (Negative); METHADONE URINE SCREEN Negative (Negative); OPIATES URINE SCREEN Negative (Negative)
[2025-01-25 13:25] LABS: Tricyclic Antidepressants Negative (Negative)
[2025-01-26 11:45] LABS: Fentanyl Scr w/Rfx Confirm Negative ng/mL (<1)
[2025-02-02 10:16] LABS: Buprenorphine Negative ng/mL (Cutoff: 5.0)
== END 2025-01-25 10:33 | disposition home or self-care (01) ==
LOC: LBN 10:32
PROVIDERS: Advanced Practice Midwife; PCP Nurse Practitioner Family; Visit Provider Advanced Practice Midwife
DX: Z34.91 Encounter for supervision of normal pregnancy, unspecified, first trimester (principal)
CPT/HCPCS: 80307; 80348

== ENCOUNTER 2025-02-03 01:19 | Outpatient (CLI) | payer MEDICAID, SELFPAY | END 2025-02-03 01:20 | disposition home or self-care (01) | LOC: LBO 01:19 | PROVIDERS: PCP Nurse Practitioner Family; Visit Provider Advanced Practice Midwife | DX: R73.09 Other abnormal glucose (principal) | CPT/HCPCS: 36415; 82951 ==

== ENCOUNTER 2025-03-16 10:06 | Outpatient (REF) | payer MEDICAID, SELFPAY | END 2025-03-16 10:07 | disposition home or self-care (01) | LOC: LBN 10:06 | PROVIDERS: PCP Nurse Practitioner Family; Visit Provider Advanced Practice Midwife | DX: Z34.93 Encounter for supervision of normal pregnancy, unspecified, third trimester (principal); Z3A.36 36 weeks gestation of pregnancy | CPT/HCPCS: 87081 ==

== ENCOUNTER 2025-04-15 03:01 | Inpatient (IN) | payer MEDICAID, SELFPAY ==
[2025-04-15] VITALS (19 sets, daily range): BP systolic 120–143; BP diastolic 71–90; PULSE 72–105; RESP 16–18; TEMP 36.7–37.1; O2SAT 100
--- NOTE | 2025-04-15 02:52 | W.PM.OBHPL1 ---
Date of service: 04/15/25 Time of Service: 02:52 Assessment and Plan Assessment and plan (1) Normal labor: Status: Acute Assessment and plan: A: 24 yo G1 @ 40+3 wks, spontaneous active labor category 1 tracing, GBS negative low risk for SD and PPH, benign AP course elevated 1 hr glucola @ 28 wks, declined 3 hr GTT, 1 wk QID fingersticks for 1 elevation after eating cereal P: Admit to L&D, draw CBC and T&S, add hgbA1c Pt planning unmedicated , family & FOB bedside supporting Expectant management, comfort measures as pt desires Anticipate OB-HPI Labor/Delivery History of Present Illness Reason for Visit: NST Chief Complaint: Uterine Contractions (woke up at 0030 with painful contractions in her lower belly and blood streaked mucous plug, emesis x1 shortly after waking up.). MADDY Calculator Estimated Delivery Date Method Current WG Current Estimate 04/12/25 Ultrasound #1 40w 3d Other Estimates 05/03/25 LMP (Certain) 37w 3d 04/13/25 Ultrasound #2 40w 2d History of Present Expected Delivery Route/Plan - CNM FOB/boyfriend - Manjit Neal (1st baby) BGNabeel Wants to avoid epidural, will try nitrous & moving around Plans Manjit, her mom, Hortencia and a friend, [place] for labor support GBS negative Specific Issues/Plan 1. cfDNA low risk female, CF carrier screen neg, AFP=nml risk for NTD 2. 5P screen positive, initial neg, 28 wk UDS negative 3. glucola at 28 ycx=477, unable to complete 3 hr GTT; did QID glucose testing 3a. On 4 days of home monitoring, fastings all nml, 2 elevations after eating cereal 3b. Will repeat a week of QID home testing at 34 wks . One elevation after having sugar cereal for breakfast, counselled Review of Systems All systems reviewed & are unremarkable except as noted in HPI and below PFSH All Active Problems (Updated 04/15/25 @ 03:00 by Bharati Gtz) Normal labor (Acute) (Acute) Medical History (Updated 04/15/25 @ 03:00 by Bharati Gtz) Elevated glucose level Antepartum bleeding, first trimester history of Chronic GERD Social History Smoking/Tobacco Use Status: Current-Occasional Tobacco Type: e-cigarettes Smoking risk assessment performed?: Yes Alcohol Intake: never Drug use: Occasionally Substance use type: marijuana Do you feel safe at home: Yes Do you feel safe in your relationship?: Yes History History 1 Para 0 Hx # Term Pregnancies 0 Multiple births 0 Hx # Pregnancies 0 Ectopic pregnancies 0 AB induced 0 Hx Number of Living Children 0 AB spontaneous 0 Meds Allergies and Home Medications Allergies Allergy/AdvReac Type Severity Reaction Status Date / Time tree and shrub pollen Allergy Intermediate Headache Verified 04/13/25 09:46 Home Medications ?Medication ?Instructions ?Recorded ?Confirmed ?Type ondansetron HCl 8 mg tablet 8 mg PO Q8H PRN nausea and 09/29/24 04/13/25 Rx vomiting #20 tabs magnesium citrate 70 mg-potassium cap PO 03/08/25 04/13/25 History citrate 99 mg capsule triamcinolone acetonide 0.1 % 1 applic topical BID #80 grams 03/16/25 04/13/25 Rx topical cream famotidine 20 mg tablet 20 mg PO BID #30 tabs 03/23/25 04/13/25 Rx Exam Physical Exam Vital Signs Reviewed: Yes Constitutional Constitutional: moderate distress, average body habitus and cooperative Detailed Labor and Delivery Exam Dilation: 8.5 Effacement (%): 100 station: -2 Position: LOP Consistency: soft Amniotic Membrane Status: Intact (soft forebag palpable) Monitor Mode: External Contraction Frequency(min): q 2-4 Contraction Intensity: Moderate/Strong Fetus A Heart Rate Baseline: 140 Monitor Accelerations: 15 X 15 Monitor Decelerations: None Variability: Moderate (6-25 BPM) Categories: Category I Est. Weight: 7 lb 14.986 oz Est. Weight: 3600 gms Neck Exam Neck Exam: Normal Chest/Brest/Axilla Exam Chest Exam: Normal Breast Exam Breast Exam: Not Done Respiratory Exam Respiratory Exam: Normal Cardiovascular Exam Cardiovascular Exam: Normal Abdominal Exam Abdominal Exam: Normal (gravid, nontender) Rectal Exam Rectal Exam: Normal Exam Exam: Normal Extremities Exam Extremities Exam: Normal Back/Spine/Pelvis Exam Back Exam: Normal Pelvis Adequate: Yes Skin Exam Skin Exam: Normal Neurological Exam Neurological Exam: Normal Psychiatric Exam Psychiatric Exam: Normal Results Results Group Beta Strep: Negative Blood Type: O+ Rubella Status: Immune Varicella Immunity: Immune Risk Assessment Risk for Shoulder Dystocia Historical/Initial OB: NEGATIVE FOR: Pelvic Abnormality, Pre- BMI>30, Previous Shoulder Dystocia or Previous Macrosomia 36 Weeks: NEGATIVE FOR: Current Gestational DM, EFW>4500gms or Maternal Weight Gain>40lbs 40 Weeks: NEGATIVE FOR: EFW> 4500 gms, Maternal Weight Gain >40lb or Post Dates Increased Risk?: No Delivery Plan @ 36wks: Delivery Plan @ 40 wks: spont labor, Risk for Pre-Eclampsia Date Initiated/Initials: not indicated, JK Yes, if one or more: NEGATIVE FOR: Hx Pre-E/Gest HTN, Chronic HTN, Multiple Gestation, Pre-gestational DM, Renal Disease, Systemic Lupus or APA Syndrome Yes, if 2 or more: POSITIVE FOR: Nulliparity; NEGATIVE FOR: Age>= 35 yrs, >10yr btwn pregnancies, BMI>30, ethinicty, Mother/Sister w/ Pre-E or Previous IUGR Risk for Post- Hemorrhage Initial: NEGATIVE FOR: Multiple Gestation, Previous PPH, Known Clotting Deficiency, Grand Multiparity or Anticoagulation 36 Weeks: NEGATIVE FOR: Anemia, hgb<10, Low platelets(thrombocytopenia), Gestational HTN or Pre-E, Polyhydraminios or EFW>4500gms 40 Weeks: NEGATIVE FOR: Anemia, hgb<10, Low platelets (thrombocytopenia), Gestation HTN or Pre-E, Polyhydraminios or EFW>4500gms At Risk?: No Counseled re: Active Management: Yes Risks Reviewed Risks Reviewed Upon Admission: Yes
[2025-04-15 03:28] LABS: HCT 36.3 % (36.0-46.0); HGB 11.8 g/dL (11.2-15.7); MCH 27.9 pg (27.0-33.0); MCHC 32.5 % (32.0-36.0); MCV 86 fL (80-95); MPV 10.3 fL (8.0-11.0); Platelet Count 243 10^3/uL (130-400); RBC 4.23 10^6/uL (3.93-5.22); RDW 13.3 % (11.7-14.6); RDW-SD 41.3 fL; WBC 11.11 10^3/uL (4.4-10.8)
[2025-04-15 03:42] LABS: Hemoglobin A1C 5.5 % (<5.7)
[2025-04-15] MEDS: Oxytocin 10 UNITS/ML VIAL IM (04:45)
[2025-04-15] MEDS: Benzocaine 20% 60 ML CAN (04:45)
[2025-04-15] MEDS: miSOPROStol 200 MCG TAB 600 MCG SL (04:55)
[2025-04-15] MEDS: Acetaminophen 325 MG TAB (05:11)
[2025-04-15] MEDS: Ibuprofen 600 MG TAB (05:13)
--- NOTE | 2025-04-15 05:39 | W.OBDELIVERY ---
Date of service: 04/15/25 Time of Service: 05:39 OB Labor/ Delivery Information Baby A Delivery Delivery Method: Spontaneaous Presentation: Cephalic Cephalic Position: Vertex Vertex Position: Left Occipital Anterior Breech Position: N/A Cord Description-Baby A: 3 Vessels and Other (loop of cord at chin with nuchal hand) Amniotic Fluid: Meconium Quantitative Blood Loss: 850 Delivery Outcome: Liveborn Infant Transferred: Remains with Mother Note: Pt admitted to unit and progressed rapidly to full dilation, spontaneous urges to bear down noted and 2nd stage huddle completed, AROM of forebag with vtx at +3 for meconium fluid, intermittent doptone check after contractions ranged 110-140, excellent maternal efforts resulted in of a vigorous female infant, nuchal hand and loop of cord seen at chin, shoulders delivered with ease, infant bulb sx on field then handed to mother's arms. Pitocin 10 units IM given, cord clamped and cut by FOB at 5 minutes. Steady lochia noted, fundus firm below umbilicus, [place] placenta delivered intact with 3CV and large gush of blood, straight cath done for 100 ml clear yellow urine, fundal massage slowed bleeding and 600 mcg misoprostel given PO. 2nd degree laceration repaired under topical benzocaine anesthetic aerosol with 3.0 Vicryl, rectal exam done confirms sphincter and mucosa are intact. QBL 850 ml, apgars 8/9, weight 3230 gms. Providers Nurse Manager General: Bharati Gtz Nurse: Evangelina Gonzalez Nurse: More Torrez Labor/Delivery Information Number of Babies in Womb: 1 Group Beta Strep: N/A Antibiotics Administered: No Rubella Status: Immune Blood Type: O+ Varicella Immunity: Immune Shoulder Dystocia: No Stages of Labor Onset of Labor Date: 04/15/25 Onset of Labor Time: 00:30 Complete Dilatation Date: 04/15/25 Complete Dilatation Time: 03:26 Labor - Stage 1 Duration: 2 hours and 56 minutes ROM Baby A: 04/15/25 Infant Delivery Date-Baby A: 04/15/25 Delivery Time-Baby A: 04:43 Labor Stage 2 Duration: 1 hours and 17 minutes Placenta Delivery Date-Baby A: 04/15/25 Placenta Delivery Time-Baby A: 04:57 Labor-Stage 3 Duration: 14 minutes Total Length of Labor-Baby A: 4 hours and 13 minutes Placenta Status: Delivered Baby A Infant Gender: Female Gestational Status: Term (39-41.6 wks) Gestational Age in Weeks/Days: 40 Weeks and 5 Days weight: 7 lb 1.935 oz Weight Comment: 3230 gms Score-1 Minute Interval(Baby A) Heart Rate-1 minute: 100 BPM or Greater Respiratory Effort- 1 minute: Slow Respiration/Weak Cry Muscle Tone-1 minute: Active Movement Reflex Response-1 minute: Prompt Response Color-1 minute: Bluish Hands or Feet Total Score-1 minute: 8 Score-5 Minute Interval(Baby A) Heart Rate- 5 minute: 100 BPM or Greater Respiratory Effort-5 minute: Spontaneous/Strong Cry Muscle Tone-5 minute: Active Movement Reflex Response-5 minute: Prompt Response Color-5 minute: Bluish Hands or Feet Total Score- 5 minute: 9
[2025-04-15] MEDS: Methylergonovine 0.2 MG TAB PO ×3 (11:30→21:46)
[2025-04-15] MEDS: Docusate Sodium 100 MG CAP PO (11:30)
[2025-04-15] MEDS: Acetaminophen 325 MG TAB 650 MG PO (21:46)
[2025-04-15] MEDS: Ibuprofen 600 MG TAB PO (21:47)
[2025-04-16] MEDS: Ibuprofen 600 MG TAB PO (06:01)
[2025-04-16] MEDS: Acetaminophen 325 MG TAB 650 MG PO (06:02)
[2025-04-16 06:05] VITALS: BP 114/86; PULSE 92; RESP 17; TEMP 36.8
[2025-04-16 08:00] VITALS: BP 124/70; PULSE 84; RESP 16; TEMP 36.7
--- NOTE | 2025-04-16 11:45 | W.PM.OBPNV1 ---
Date of service: 04/16/25 Time of Service: 11:45 Assessment and Plan Assessment and plan (1) Term delivered: Status: Acute Assessment and plan: A: PPD#1, going well Satisfied with experience P: Pt requests discharge to home today Plans POP's for BCM Written instructions reviewed and given to pt F/up at 2 & 6 wk appts Subjective Subjective Patient comments: No complaints, Pain well controlled, Tolerating diet and Bowel Movement Patient's Mood: happy, tired baby status: Doing well, Nursing well, Rooming in and Strong Bonding Observed feeding status: Exclusively breast feeding Exam Physical Exam Vital signs: Temp Pulse Resp BP Pulse Ox 98.2 F 92 H 17 114/86 100 04/16/25 06:05 04/16/25 06:05 04/16/25 06:05 04/16/25 06:05 04/15/25 21:47 Vital Signs Reviewed: Yes Constitutional Constitutional: no acute distress and cooperative HEENT Exam HEENT Exam: Normal Neck Exam Neck Exam: Normal Breast Exam Bilateral: Breast Exam: Normal and Soft Nipple Exam: Normal and Uninjured Respiratory Exam Respiratory Exam: Normal Cardiovascular Exam Cardiovascular Exam: Normal Abdominal Exam Abdomen: Other (soft and nontender) Fundal Exam Fundus: Below Umbilicus and Firm Rectal Exam Rectal Exam: Normal Exam Perineum: Repair Intact Extremities Exam Extremity Exam: Normal, Full ROM and Warm to Touch Back/Spine/Pelvis Exam Back Exam: Normal Skin Exam Skin Exam: Normal Neurological Exam Neurological Exam: Normal Psychiatric Exam Psychiatric Exam: Normal
--- NOTE | 2025-04-16 11:55 | DSE_ITS ---
Date of service: 04/16/25 Time of Service: 11:55 DS: Diagnosis Discharge Diagnosis (1) Term delivered: Status: Acute Discharge Plan Disposition Patient Disposition: Home Condition: Good Discharge Details Reason For Visit: NST Admit Date/Time: 04/15/25 03:01 Admit Provider: Bharati Gtz Attending Provider: Bharati Gtz Primary Care Provider: Xi rPide Hospital Course Hospital Course: Admitted in labor, within 4-5 hours of arrival, nml course, pt desires discharge on PPD#1 Home Meds and New Rx's Prescriptions: No Action mag citrate-potassium citrate 70-99 mg capsule PO DAILY AM Patient Comments: 03/08/25- pt takes a 200 mg tablet for leg cramps triamcinolone acetonide 0.1 % cream 1 applic topical BID Qty: 80 4RF Discharge Instructions Additional Instructions: Please keep your 2 and 6 week appointments with the midwives, call for any and all concerns and questions. Stand Alone Forms: BC Instructions, BC Post Vaginal Deliver Activity:: Activity as Tolerated Equipment/Supplies:: No Equipment Needed Diet:: Normal Diet OB:DS Summary Summary Vaginal Delivery Method: Spontaneaous Episiotomy Description: None Laceration Description: Perineal Laceration Extension: Second Degree Contraception Discussed Contraception Discussed: Yes Contraceptive Plan: Control Pill/Patch, [place] Gender-Baby A: Female weight: 7 lb 1.935 oz Status at Discharge Functional status at discharge: independent ambulation Overall status at discharge: patient is progressing back to baseline Mental Status: mental status grossly normal Speech and Movement: speech and movement normal Mood: congruent mood Affect: normal affect Exam Physical Exam Vital signs: Temp Pulse Resp BP Pulse Ox 98.2 F 92 H 17 114/86 100 04/16/25 06:05 04/16/25 06:05 04/16/25 06:05 04/16/25 06:05 04/15/25 21:47 Vital Signs Reviewed: Yes Constitutional Constitutional: no acute distress and cooperative HEENT Exam HEENT Exam: Normal Neck Exam Neck Exam: Normal Breast Exam Bilateral: Breast Exam: Normal and Soft Respiratory Exam Respiratory Exam: Normal Cardiovascular Exam Cardiovascular Exam: Normal Abdominal Exam Abdomen: Other (soft and nontender) Fundal Exam Fundus: Below Umbilicus and Firm Rectal Exam Rectal Exam: Normal Exam Perineum: Repair Intact Extremities Exam Extremity Exam: Normal, Full ROM and Warm to Touch Back/Spine/Pelvis Exam Back Exam: Normal Skin Exam Skin Exam: Normal Neurological Exam Neurological Exam: Normal Psychiatric Exam Psychiatric Exam: Normal PFSH All Active Problems (Updated 04/16/25 @ 11:43 by Bharati Gtz) Term delivered (Acute) Medical History (Updated 04/16/25 @ 11:43 by Bharati Gtz) Normal labor Elevated glucose level Antepartum bleeding, first trimester history of Chronic GERD Social History Smoking/Tobacco Use Status: Current-Occasional Tobacco Type: e-cigarettes Smoking risk assessment performed?: Yes Alcohol Intake: never Drug use: Occasionally Substance use type: marijuana Do you feel safe at home: Yes Do you feel safe in your relationship?: Yes History History 1 Para 0 Hx # Term Pregnancies 0 Multiple births 0 Hx # Pregnancies 0 Ectopic pregnancies 0 AB induced 0 Hx Number of Living Children 0 AB spontaneous 0 DS: Data Vitals/I&O Vitals and I&O: Vital Signs Temperature 98.2 F 04/16/25 06:05 Temperature Source Oral 04/16/25 06:05 Pulse 92 H 04/16/25 06:05 Pulse Rhythm Regular 04/15/25 22:46 Respiratory Rate 17 04/16/25 06:05 Blood Pressure 114/86 04/16/25 06:05 Blood Pressure Mean 95 04/16/25 06:05 Pulse Oximetry 100 04/15/25 21:47 Pain Level 2 04/16/25 06:01 Intake & Output 04/15/25 04/15/25 04/16/25 11:59 23:59 11:59 Output Total 800 / 1450 650 / 1450 Balance -800 / -1450 -650 / -1450 Weight 182 lb Output: Urine 650 / 650 Blood 800 / 800 Other: Urine Color Yellow
== END 2025-04-16 14:15 | disposition home or self-care (01) | DRG 806 ==
LOC: BCD 03:01 → OBS 03:01
PROVIDERS: Admitting Provider Advanced Practice Midwife; PCP Nurse Practitioner Family; Visit Provider Advanced Practice Midwife
DX: O48.0 Post-term pregnancy (principal); O99.324 Drug use complicating childbirth; Z37.0 Single live birth; Z3A.40 40 weeks gestation of pregnancy; O99.62 Diseases of the digestive system complicating childbirth; K21.9 Gastro-esophageal reflux disease without esophagitis; O99.334 Smoking (tobacco) complicating childbirth; F17.210 Nicotine dependence, cigarettes, uncomplicated; F12.90 Cannabis use, unspecified, uncomplicated; O77.0 Labor and delivery complicated by meconium in amniotic fluid; O70.1 Second degree perineal laceration during delivery; O69.81X0 Labor and delivery complicated by cord around neck, without compression, not applicable or unspecified
CPT/HCPCS: 36415; 85027; 86850; 86900; 86901; 83036; J2590